=== PATIENT | female | born 1955 | race Caucasian/White ===

== ENCOUNTER 2018-07-24 09:18 | Emergency (ER) | payer MEDICARE, MEDICAID ==
[~2018-07-24] VITALS: Ht 177.8 cm; Wt 92.0 kg
[~2018-07-24 09:18] MED LIST: ALBU8.5H4 IH; CYCL-1 PO; DULO-31 PO; HYDR-2563 PO; HYDR25SU32 RC; HYDR30SU6 RC; LEVO112T25 PO; METH4TAB PO; PRED10TA PO; QUET25TA PO; WEL100T PO; [UNRECOGNIZED DRUG - CODE] PO
[2018-07-24 10:14] LABS: BASOPHILS # (AUTO) 0.1 X10'3 (0-0.2); BASOPHILS % (AUTO) 0.9 % (0-1); EOSINOPHILS # (AUTO) 0.2 X10'3 (0-0.9); EOSINOPHILS % (AUTO) 3.1 % (0-6); HEMATOCRIT 40.5 % (35.0-45.0); HEMOGLOBIN 13.8 g/dl (12.0-16.0); LYMPHOCYTES # (AUTO) 1.5 X10'3 (1.1-4.8); LYMPHOCYTES % (AUTO) 22.5 % (21-51); MEAN CORPUSCULAR HEMOGLOBIN 30.1 PG (27.0-31.0); MEAN CORPUSCULAR VOLUME 88.6 FL (78-98); MONOCYTES # (AUTO) 0.4 X10'3 (0-0.9); MONOCYTES % (AUTO) 6.3 % (2-12); NEUTROPHILS # (AUTO) 4.5 X10'3 (1.8-7.7); NEUTROPHILS % (AUTO) 67.2 % (42-75); PLATELET COUNT 220 X10'3 (140-440); RED BLOOD COUNT 4.58 X10'6 (4.20-5.60); RED CELL DISTRIBUTION WIDTH 13.8 % (11.5-14.5); WHITE BLOOD COUNT 6.8 X10'3 (4.5-11.0)
[2018-07-24 10:23] LABS: PARTIAL THROMBOPLASTIN TIME 29 SECONDS (22-32); PROTHROMBIN TIME 9.9 SECONDS (9.0-12.0)
[2018-07-24 10:27] LABS: ALANINE AMINOTRANSFERASE 16 U/L (12-78); ALBUMIN 3.7 G/DL (3.4-5.0); ALBUMIN/GLOBULIN RATIO 1.2 (1.1-1.5); ALKALINE PHOSPHATASE 72 IU/L (46-116); ANION GAP 8 (8-16); ASPARTATE AMINO TRANSFERASE 14 U/L (10-37); BILIRUBIN,TOTAL 0.4 MG/DL (0.1-1.0); BLOOD UREA NITROGEN 16 MG/DL (7-18); BUN/CREATININE RATIO 19.8 (6.6-38.0); CALCIUM 9.1 MG/DL (8.5-10.1); CHLORIDE 108 MMOL/L (99-107); CREATININE 0.81 MG/DL (0.40-0.90); GLUCOSE 93 MG/DL (70-104); POTASSIUM 4.9 MMOL/L (3.5-5.1); SODIUM 144 MMOL/L (135-145); TOTAL CARBON DIOXIDE 28.5 MMOL/L (24-32); TOTAL PROTEIN 6.9 G/DL (6.4-8.2); eGFR 72 ML/MIN
[2018-07-24] MEDS ORDERED: iohexol 300mg/ml 100ml inj. ONE (10:51)
[2018-07-24 11:18] LABS: CLARITY,URINE CLEAR (Clear); GLUCOSE, URINE NEGATIVE (Neg); KETONES,URINE NEGATIVE (Neg); LEUKOCYTE ESTERASE ,URINE NEGATIVE (Neg); NITRITES, URINE NEGATIVE (Neg); OCCULT BLOOD,URINE SMALL (Neg); PROTEIN,URINE NEGATIVE (Neg); UROBILINOGEN,URINE 0.2 E.U/dL (0.2-1.0)
[2018-07-24 11:20] LABS: COLOR,URINE YELLOW (Yellow); UA COLLECTION TYPE OTHER
[2018-07-24 11:51] LABS: BACTERIA,URINE FEW /HPF (Neg); RBC,URINE 0-2 /HPF (0-2); SQUAMOUS EPITHELIAL CELL,UR FEW /LPF (FEW); WBC,URINE 0-4 /HPF (0-4)
[2018-07-24 13:00] VITALS: BP 129/70
== END 2018-07-24 13:03 | disposition home or self-care (01) ==
LOC: ER 09:19
DX: K92.1 Melena (principal); J45.909 Unspecified asthma, uncomplicated; Z98.890 Other specified postprocedural states; Z88.2 Allergy status to sulfonamides; Z88.1 Allergy status to other antibiotic agents; Z88.5 Allergy status to narcotic agent; Z79.899 Other long term (current) drug therapy
CPT/HCPCS: 36415; 71045; 74177; 80053; 81001; 85025; 85610; 85730; 86885; 86900; 86901; 93005; 99285; J7030; Q9967

== ENCOUNTER 2018-07-27 06:55 | Inpatient (IN) | payer MEDICARE, MEDICAID ==
[~2018-07-27] VITALS: Ht 177.8 cm; Wt 90.9 kg
[2018-07-27] MEDS ORDERED: normal saline 1000ML IV soln IVB ONE ×2 (08:15→08:20)
[2018-07-27] MEDS ORDERED: ondansetron/PF 4mg/2ml inj IV ONE (08:15)
[2018-07-27] MEDS ORDERED: normal saline 1000ml 1,000 ML IV ONE (08:20)
[2018-07-27 08:49] LABS: BASOPHILS % (AUTO) 0.6 % (0-1); EOSINOPHILS # (AUTO) 0.1 X10'3 (0-0.9); HEMATOCRIT 42.5 % (35.0-45.0); HEMOGLOBIN 14.2 g/dl (12.0-16.0); LYMPHOCYTES # (AUTO) 1.4 X10'3 (1.1-4.8); LYMPHOCYTES % (AUTO) 21.1 % (21-51); MEAN CORPUSCULAR HEMOGLOBIN 29.8 PG (27.0-31.0); MEAN CORPUSCULAR HGB CONC 33.3 % (33.0-36.5); MEAN CORPUSCULAR VOLUME 89.4 FL (78-98); MEAN PLATELET VOLUME 9.1 FL (7.4-10.4); MONOCYTES # (AUTO) 0.4 X10'3 (0-0.9); MONOCYTES % (AUTO) 6.3 % (2-12); NEUTROPHILS # (AUTO) 4.5 X10'3 (1.8-7.7); PLATELET COUNT 221 X10'3 (140-440); RED BLOOD COUNT 4.76 X10'6 (4.20-5.60); RED CELL DISTRIBUTION WIDTH 14.2 % (11.5-14.5); WHITE BLOOD COUNT 6.5 X10'3 (4.5-11.0)
[2018-07-27 09:08] LABS: ALANINE AMINOTRANSFERASE 23 U/L (12-78); ALBUMIN 3.7 G/DL (3.4-5.0); ALBUMIN/GLOBULIN RATIO 1.1 (1.1-1.5); ALKALINE PHOSPHATASE 79 IU/L (46-116); ANION GAP 13 (8-16); ASPARTATE AMINO TRANSFERASE 21 U/L (10-37); BILIRUBIN,TOTAL 0.5 MG/DL (0.1-1.0); BLOOD UREA NITROGEN 12 MG/DL (7-18); CALCIUM 8.9 MG/DL (8.5-10.1); CHLORIDE 106 MMOL/L (99-107); CREATININE 0.75 MG/DL (0.40-0.90); GLUCOSE 91 MG/DL (70-104); LIPASE 118 U/L (73-393); POTASSIUM 3.8 MMOL/L (3.5-5.1); SODIUM 145 MMOL/L (135-145); TOTAL CARBON DIOXIDE 25.6 MMOL/L (24-32); eGFR 79 ML/MIN
[2018-07-27] MEDS ORDERED: ondansetron/PF 4mg/2ml inj IV PRN (09:25)
[2018-07-27] MEDS ORDERED: magnesium 1gm/100ml D5W IVPB 100 ML IV PRN (09:25)
[2018-07-27] MEDS ORDERED: potassium Cl 20 mEq SR tablet PO PRN ×2 (09:25)
[2018-07-27] MEDS ORDERED: PEG 3350/Na sulf,bicarb,Cl/KCl oral sol 4 liter bottle PO ONE (09:25)
[2018-07-27] MEDS ORDERED: mag hydrox/Alum hydrox/simeth 30ml oral suspension PO PRN (09:25)
[2018-07-27] MEDS ORDERED: acetaminophen 325mg tablet PO PRN (09:25)
[2018-07-27] MEDS ORDERED: potassium Cl 40MEQ/NS 500ml 500 ML IV PRN ×2 (09:25)
[2018-07-27] MEDS ORDERED: magnesium 4gm in 100ml NS 100 ML IV PRN (09:25)
[2018-07-27] MEDS ORDERED: magnesium Cl slow-release 64mg tablet PO PRN (09:25)
[2018-07-27] MEDS ORDERED: morphine 2 MG/ML inj. syringe IV PRN (09:25)
[2018-07-27] MEDS ORDERED: HYDR-3717 PO (09:42)
[2018-07-27] MEDS ORDERED: TRAZ-218 PO (09:42)
[2018-07-27] MEDS ORDERED: LEVO150T8 PO (09:42)
[2018-07-27] MEDS ORDERED: MONT10TA24 PO (09:42)
[2018-07-27] MEDS ORDERED: ATOR20TA66 PO (09:42)
[2018-07-27] MEDS ORDERED: SERT50TA10 PO (09:42)
[2018-07-27] MEDS ORDERED: CHOL50004 PO (09:42)
[2018-07-27] MEDS ORDERED: DICY20TA17 PO (09:42)
[2018-07-27] MEDS ORDERED: ESTR0.6261 PO (09:42)
[2018-07-27] MEDS: normal saline 1000ml 1,000 ML IV SCH ×2 (10:15→19:37)
[2018-07-27] MEDS: HYDROcodone/acetaminophen 5mg/325mg tablet PO PRN ×3 (11:08→22:46)
[2018-07-27 11:33] VITALS: BP 126/64
[2018-07-27 18:00] VITALS: BP 105/51
[2018-07-27] MEDS: docusate sod 100mg capsule PO SCH (19:36)
[2018-07-27] MEDS ORDERED: temazepam 15mg capsule PO PRN (21:00)
[2018-07-27 22:00] VITALS: BP_SYST 116; BP_SYST 117; BP_SYST 119; BP_SYST 124; BP_DIAS 55; BP_DIAS 56; BP_DIAS 73; BP_DIAS 77
[2018-07-27] MEDS ORDERED: metoclopramide 5 mg/ml inj IV ONE (22:30)
[2018-07-28] VITALS (9 sets, daily range): BP systolic 102–141; BP diastolic 50–73
[2018-07-28] MEDS: normal saline 1000ml 1,000 ML IV SCH (05:03)
[2018-07-28] MEDS: pantoprazole 40 MG vial IV SCH (07:38)
[2018-07-28] MEDS: docusate sod 100mg capsule PO SCH ×2 (07:39→20:00)
[2018-07-28] MEDS: K and/or MAG REPLACEMENT MC SCH (08:00)
[2018-07-28 08:09] LABS: BASOPHILS % (AUTO) 0.7 % (0-1); EOSINOPHILS # (AUTO) 0.1 X10'3 (0-0.9); HEMATOCRIT 37.8 % (35.0-45.0); HEMOGLOBIN 12.9 g/dl (12.0-16.0); LYMPHOCYTES # (AUTO) 1.4 X10'3 (1.1-4.8); LYMPHOCYTES % (AUTO) 24.9 % (21-51); MEAN CORPUSCULAR HEMOGLOBIN 30.2 PG (27.0-31.0); MEAN CORPUSCULAR VOLUME 88.8 FL (78-98); MEAN PLATELET VOLUME 8.7 FL (7.4-10.4); MONOCYTES # (AUTO) 0.3 X10'3 (0-0.9); NEUTROPHILS # (AUTO) 3.7 X10'3 (1.8-7.7); NEUTROPHILS % (AUTO) 66.4 % (42-75); PLATELET COUNT 209 X10'3 (140-440); RED BLOOD COUNT 4.26 X10'6 (4.20-5.60); RED CELL DISTRIBUTION WIDTH 14.1 % (11.5-14.5); WHITE BLOOD COUNT 5.6 X10'3 (4.5-11.0)
[2018-07-28 08:28] LABS: ALBUMIN 3.4 G/DL (3.4-5.0); ANION GAP 11 (8-16); BLOOD UREA NITROGEN 7 MG/DL (7-18); BUN/CREATININE RATIO 8.9 (6.6-38.0); CALCIUM 8.2 MG/DL (8.5-10.1); CHLORIDE 106 MMOL/L (99-107); CREATININE 0.79 MG/DL (0.40-0.90); GLUCOSE 87 MG/DL (70-104); POTASSIUM 3.5 MMOL/L (3.5-5.1); SODIUM 143 MMOL/L (135-145); TOTAL CARBON DIOXIDE 26.1 MMOL/L (24-32); eGFR 74 ML/MIN
[2018-07-28] MEDS ORDERED: MIDAZolam 5mg/5ml vial ONE (13:22)
[2018-07-28] MEDS ORDERED: fentaNYL/PF 50MCG/1 ML 2ML syringe ONE (13:22)
[2018-07-28] MEDS ORDERED: ondansetron/PF 4mg/2ml inj ONE (14:20)
[2018-07-28 15:45] LABS: BASOPHILS # (AUTO) 0.1 X10'3 (0-0.2); BASOPHILS % (AUTO) 0.8 % (0-1); EOSINOPHILS # (AUTO) 0.2 X10'3 (0-0.9); HEMOGLOBIN 13.6 g/dl (12.0-16.0); LYMPHOCYTES # (AUTO) 1.8 X10'3 (1.1-4.8); LYMPHOCYTES % (AUTO) 23.7 % (21-51); MEAN CORPUSCULAR HEMOGLOBIN 29.7 PG (27.0-31.0); MEAN CORPUSCULAR HGB CONC 33.2 % (33.0-36.5); MEAN CORPUSCULAR VOLUME 89.4 FL (78-98); MEAN PLATELET VOLUME 9.3 FL (7.4-10.4); MONOCYTES # (AUTO) 0.4 X10'3 (0-0.9); MONOCYTES % (AUTO) 5.6 % (2-12); NEUTROPHILS # (AUTO) 5.2 X10'3 (1.8-7.7); NEUTROPHILS % (AUTO) 67.9 % (42-75); PLATELET COUNT 227 X10'3 (140-440); RED BLOOD COUNT 4.58 X10'6 (4.20-5.60); RED CELL DISTRIBUTION WIDTH 14.1 % (11.5-14.5); WHITE BLOOD COUNT 7.7 X10'3 (4.5-11.0)
[2018-07-29 06:00] VITALS: BP 137/58
[2018-07-29 08:00] VITALS: BP_SYST 124; BP_SYST 133; BP_SYST 137; BP_DIAS 72; BP_DIAS 78; BP_DIAS 81
[2018-07-29] MEDS: docusate sod 100mg capsule PO SCH (08:00)
[2018-07-29] MEDS: pantoprazole 40 MG vial IV SCH (08:00)
[2018-07-29] MEDS: K and/or MAG REPLACEMENT MC SCH (08:00)
[2018-07-29 08:03] LABS: ALBUMIN 3.9 G/DL (3.4-5.0); ANION GAP 13 (8-16); BLOOD UREA NITROGEN 8 MG/DL (7-18); CALCIUM 9.2 MG/DL (8.5-10.1); CHLORIDE 105 MMOL/L (99-107); GLUCOSE 84 MG/DL (70-104); MAGNESIUM 2.1 MG/DL (1.5-2.4); POTASSIUM 3.6 MMOL/L (3.5-5.1); SODIUM 145 MMOL/L (135-145); eGFR 73 ML/MIN
[2018-07-29 08:14] LABS: BASOPHILS % (AUTO) 0.4 % (0-1); EOSINOPHILS # (AUTO) 0.1 X10'3 (0-0.9); HEMATOCRIT 43.7 % (35.0-45.0); HEMOGLOBIN 14.6 g/dl (12.0-16.0); LYMPHOCYTES # (AUTO) 1.3 X10'3 (1.1-4.8); LYMPHOCYTES % (AUTO) 20.6 % (21-51); MEAN CORPUSCULAR HEMOGLOBIN 29.8 PG (27.0-31.0); MEAN CORPUSCULAR HGB CONC 33.3 % (33.0-36.5); MEAN CORPUSCULAR VOLUME 89.3 FL (78-98); MEAN PLATELET VOLUME 9.3 FL (7.4-10.4); MONOCYTES # (AUTO) 0.4 X10'3 (0-0.9); MONOCYTES % (AUTO) 5.6 % (2-12); NEUTROPHILS # (AUTO) 4.7 X10'3 (1.8-7.7); NEUTROPHILS % (AUTO) 71.4 % (42-75); PLATELET COUNT 235 X10'3 (140-440); RED BLOOD COUNT 4.89 X10'6 (4.20-5.60); WHITE BLOOD COUNT 6.5 X10'3 (4.5-11.0)
[2018-07-29] MEDS ORDERED: LORazepam 0.5 MG tablet PO ONE (09:35)
[2018-07-29 10:00] VITALS: BP 124/72
[2018-07-29] MEDS ORDERED: CLON-528 PO (11:23)
[2018-07-29] MEDS ORDERED: BUDE10.22 INH (13:52)
[2018-08-01 09:37] LABS: OCCULT BLOOD STOOL POSITIVE (Neg)
== END 2018-07-29 12:33 | disposition home or self-care (01) | DRG 395 ==
LOC: ER 06:55 → ED HOLD 09:23 → ORTHO 4S 10:45
PROVIDERS: ADMIT Internal Medicine; ATTEND Internal Medicine
PROC: 0DJD8ZZ Inspection of Lower Intestinal Tract, Via Natural or Artificial Opening Endoscopic (ICD-10-PCS; principal; 2018-07-28)
DX: K64.8 Other hemorrhoids (principal); E03.9 Hypothyroidism, unspecified; E78.00 Pure hypercholesterolemia, unspecified; F12.90 Cannabis use, unspecified, uncomplicated; F31.9 Bipolar disorder, unspecified; G47.00 Insomnia, unspecified; G89.4 Chronic pain syndrome; K57.30 Diverticulosis of large intestine without perforation or abscess without bleeding; J45.909 Unspecified asthma, uncomplicated; M54.5 Low back pain; Z60.2 Problems related to living alone; Z72.89 Other problems related to lifestyle; Z79.899 Other long term (current) drug therapy; Z88.2 Allergy status to sulfonamides; Z88.5 Allergy status to narcotic agent; Z88.1 Allergy status to other antibiotic agents
CPT/HCPCS: 36415; 45378; 80048; 80053; 82272; 83690; 83735; 85025; 86885; 86900; 86901; 87070; 96361; 96374; 97116; 97161; 97530; 99153; 99285; A4620; C9113; J2250; J2405; J2765; J3010; J7030; Q2037

== ENCOUNTER 2018-07-29 12:43 | Inpatient (IN) | payer MEDICARE, MEDICAID ==
[~2018-07-29] VITALS: Ht 177.8 cm; Wt 90.0 kg
[~2018-07-29 12:43] MED LIST changes: +ATOR20TA66 PO; +CHOL50004 PO; +CLON-528 PO; -CYCL-1 PO; +DICY20TA17 PO; -DULO-31 PO; +ESTR0.6261 PO; -HYDR-2563 PO; +HYDR-3717 PO; -HYDR25SU32 RC; -HYDR30SU6 RC; -LEVO112T25 PO; +LEVO150T8 PO; -METH4TAB PO; +MONT10TA24 PO; -PRED10TA PO; -QUET25TA PO; +SERT50TA10 PO; +TRAZ-218 PO; -WEL100T PO; -[UNRECOGNIZED DRUG - CODE] PO
[2018-07-29] MEDS ORDERED: mag hydrox/Alum hydrox/simeth 30ml oral suspension PO PRN (13:35)
[2018-07-29] MEDS ORDERED: acetaminophen 325mg tablet PO PRN (13:35)
[2018-07-29] MEDS ORDERED: BUDE10.22 INH (13:52)
[2018-07-29] MEDS ORDERED: DICYCLOMINE HCL PO PRN (14:05)
[2018-07-29] MEDS ORDERED: hydrOXYzine 10 MG tablet PO PRN (14:05)
[2018-07-29] MEDS: hydrOXYzine 10 MG tablet PO PRN (14:16)
[2018-07-29 14:17] LABS: CHOL/HDL RATIO 3.6 (0.00-4.99); CHOLESTEROL 226 MG/DL (0-200); HDL CHOLESTEROL 62 MG/DL (35-60); LDL CHOLESTEROL 150 MG/DL (50-100); TRIGLYCERIDES 70 MG/DL (20-135)
[2018-07-29] MEDS ORDERED: dicyclomine 10 MG capsule PO PRN (14:20)
[2018-07-29 14:58] VITALS: BP 121/72
[2018-07-29 16:03] LABS: BASOPHILS # (AUTO) 0.1 X10'3 (0-0.2); BASOPHILS % (AUTO) 0.8 % (0-1); EOSINOPHILS # (AUTO) 0.1 X10'3 (0-0.9); EOSINOPHILS % (AUTO) 1.5 % (0-6); HEMATOCRIT 42.6 % (35.0-45.0); HEMOGLOBIN 14.2 g/dl (12.0-16.0); LYMPHOCYTES # (AUTO) 1.4 X10'3 (1.1-4.8); LYMPHOCYTES % (AUTO) 19.3 % (21-51); MEAN CORPUSCULAR HEMOGLOBIN 29.8 PG (27.0-31.0); MEAN CORPUSCULAR HGB CONC 33.4 % (33.0-36.5); MEAN CORPUSCULAR VOLUME 89.2 FL (78-98); MEAN PLATELET VOLUME 9.3 FL (7.4-10.4); MONOCYTES # (AUTO) 0.5 X10'3 (0-0.9); MONOCYTES % (AUTO) 6.3 % (2-12); NEUTROPHILS # (AUTO) 5.3 X10'3 (1.8-7.7); NEUTROPHILS % (AUTO) 72.1 % (42-75); PLATELET COUNT 237 X10'3 (140-440); RED BLOOD COUNT 4.77 X10'6 (4.20-5.60); RED CELL DISTRIBUTION WIDTH 13.9 % (11.5-14.5); WHITE BLOOD COUNT 7.4 X10'3 (4.5-11.0)
[2018-07-29] MEDS: acetaminophen 325mg tablet PO PRN (16:14)
[2018-07-29 19:52] VITALS: BP 125/76
[2018-07-29] MEDS: clonazePAM 0.5mg tablet PO SCH (21:29)
[2018-07-29] MEDS: traZODone 50mg tablet PO SCH (21:29)
[2018-07-29] MEDS: montelukast 10mg tablet PO SCH (21:30)
[2018-07-29] MEDS: BUDESONIDE 0.25 MG/2 ML AMPUL.NEB IH SCH (21:51)
[2018-07-29] MEDS: albuterol 2.5 MG/3 ML nebule NEB SCH (21:51)
[2018-07-30] MEDS: albuterol 2.5 MG/3 ML nebule NEB SCH ×4 (02:00→21:18)
[2018-07-30] MEDS: vitamin D (cholecalciferol) 1,000 unit tablet PO SCH (07:11)
[2018-07-30] MEDS: clonazePAM 0.5mg tablet PO SCH ×2 (07:11→20:37)
[2018-07-30] MEDS: estrogen, conjugated 0.625mg tablet PO SCH (07:14)
[2018-07-30] MEDS: levoTHYROXINE 75mcg tablet PO SCH (07:15)
[2018-07-30] MEDS: atorvastatin 20mg tablet PO SCH (07:15)
[2018-07-30] MEDS: BUDESONIDE 0.25 MG/2 ML AMPUL.NEB IH SCH ×2 (07:44→21:18)
[2018-07-30] MEDS ORDERED: traZODone 50mg tablet PO SCH (08:00)
[2018-07-30 08:09] VITALS: BP 113/69
[2018-07-30 19:46] VITALS: BP 103/64
[2018-07-30] MEDS ORDERED: calcium polycarbophil 625mg tablet PO SCH (20:00)
[2018-07-30] MEDS: traZODone 50mg tablet PO SCH (20:37)
[2018-07-30] MEDS: montelukast 10mg tablet PO SCH (20:37)
[2018-07-30] MEDS: busPIRone 5mg tablet PO SCH (21:00)
[2018-07-31] MEDS: albuterol 2.5 MG/3 ML nebule NEB SCH ×4 (02:00→20:02)
[2018-07-31] MEDS: atorvastatin 20mg tablet PO SCH (07:31)
[2018-07-31] MEDS: levoTHYROXINE 75mcg tablet PO SCH (07:31)
[2018-07-31] MEDS: clonazePAM 0.5mg tablet PO SCH ×2 (07:31→20:55)
[2018-07-31] MEDS: estrogen, conjugated 0.625mg tablet PO SCH (07:32)
[2018-07-31] MEDS: vitamin D (cholecalciferol) 1,000 unit tablet PO SCH (07:32)
[2018-07-31] MEDS: busPIRone 5mg tablet PO SCH ×3 (07:32→20:55)
[2018-07-31 08:00] VITALS: BP 118/66
[2018-07-31] MEDS: BUDESONIDE 0.25 MG/2 ML AMPUL.NEB IH SCH ×2 (08:06→20:02)
[2018-07-31] MEDS: docusate sod 100mg capsule PO SCH ×2 (08:30→20:55)
[2018-07-31 19:56] VITALS: BP 114/67
[2018-07-31] MEDS: traZODone 50mg tablet PO SCH (20:55)
[2018-07-31] MEDS: montelukast 10mg tablet PO SCH (20:55)
[2018-08-01] MEDS: albuterol 2.5 MG/3 ML nebule NEB SCH ×3 (03:14→20:45)
[2018-08-01] MEDS: busPIRone 5mg tablet PO SCH ×3 (07:29→21:14)
[2018-08-01] MEDS: levoTHYROXINE 75mcg tablet PO SCH (07:29)
[2018-08-01] MEDS: estrogen, conjugated 0.625mg tablet PO SCH (07:29)
[2018-08-01] MEDS: clonazePAM 0.5mg tablet PO SCH ×2 (07:29→21:13)
[2018-08-01] MEDS: docusate sod 100mg capsule PO SCH ×2 (07:29→21:13)
[2018-08-01] MEDS: vitamin D (cholecalciferol) 1,000 unit tablet PO SCH (07:29)
[2018-08-01] MEDS: atorvastatin 20mg tablet PO SCH (07:30)
[2018-08-01] MEDS: BUDESONIDE 0.25 MG/2 ML AMPUL.NEB IH SCH ×2 (07:43→20:45)
[2018-08-01 08:19] VITALS: BP 112/68
[2018-08-01 19:00] VITALS: BP 106/64
[2018-08-01] MEDS: montelukast 10mg tablet PO SCH (21:14)
[2018-08-01] MEDS: traZODone 50mg tablet PO SCH (21:14)
[2018-08-01] MEDS: magnesium hydroxide 30ml (MOM) UD suspension PO PRN (21:16)
[2018-08-02] MEDS: albuterol 2.5 MG/3 ML nebule NEB SCH ×2 (01:09→07:55)
[2018-08-02] MEDS: levoTHYROXINE 75mcg tablet PO SCH (07:23)
[2018-08-02] MEDS: BUDESONIDE 0.25 MG/2 ML AMPUL.NEB IH SCH ×2 (07:56→20:00)
[2018-08-02 08:00] VITALS: BP 105/66
[2018-08-02] MEDS: docusate sod 100mg capsule PO SCH ×2 (08:35→21:05)
[2018-08-02] MEDS: atorvastatin 20mg tablet PO SCH (08:35)
[2018-08-02] MEDS: busPIRone 5mg tablet PO SCH ×3 (08:36→21:06)
[2018-08-02] MEDS: clonazePAM 0.5mg tablet PO SCH ×2 (08:36→21:05)
[2018-08-02] MEDS: estrogen, conjugated 0.625mg tablet PO SCH (08:36)
[2018-08-02] MEDS: vitamin D (cholecalciferol) 1,000 unit tablet PO SCH (08:36)
[2018-08-02] MEDS: albuterol 2.5 MG/3 ML nebule NEB PRN (14:40)
[2018-08-02 19:00] VITALS: BP 130/72
[2018-08-02] MEDS: acetaminophen 325mg tablet PO PRN (19:18)
[2018-08-02] MEDS: traZODone 50mg tablet PO SCH (21:06)
[2018-08-02] MEDS: montelukast 10mg tablet PO SCH (21:06)
[2018-08-02] MEDS: polyethylene glycol 3350 17gm powd pack PO SCH (21:06)
[2018-08-02] MEDS: magnesium hydroxide 30ml (MOM) UD suspension PO PRN (21:07)
[2018-08-03] MEDS: levoTHYROXINE 75mcg tablet PO SCH (07:30)
[2018-08-03 07:48] VITALS: BP 107/68
[2018-08-03] MEDS: estrogen, conjugated 0.625mg tablet PO SCH (07:57)
[2018-08-03] MEDS: clonazePAM 0.5mg tablet PO SCH ×2 (07:57→21:05)
[2018-08-03] MEDS: vitamin D (cholecalciferol) 1,000 unit tablet PO SCH (07:57)
[2018-08-03] MEDS: busPIRone 5mg tablet PO SCH ×3 (07:58→21:05)
[2018-08-03] MEDS: atorvastatin 20mg tablet PO SCH (07:58)
[2018-08-03] MEDS: docusate sod 100mg capsule PO SCH ×2 (07:58→21:05)
[2018-08-03] MEDS: sertraline 25mg tablet PO SCH (08:29)
[2018-08-03] MEDS: hydrOXYzine 10 MG tablet PO PRN (08:34)
[2018-08-03] MEDS: BUDESONIDE 0.25 MG/2 ML AMPUL.NEB IH SCH ×2 (10:04→19:33)
[2018-08-03 19:00] VITALS: BP 126/67
[2018-08-03] MEDS: polyethylene glycol 3350 17gm powd pack PO SCH (21:05)
[2018-08-03] MEDS: traZODone 50mg tablet PO SCH (21:05)
[2018-08-03] MEDS: montelukast 10mg tablet PO SCH (21:06)
[2018-08-04] MEDS: hydrOXYzine 10 MG tablet PO PRN (05:56)
[2018-08-04] MEDS: levoTHYROXINE 75mcg tablet PO SCH (07:23)
[2018-08-04 08:00] VITALS: BP 116/68
[2018-08-04] MEDS: sertraline 25mg tablet PO SCH (08:13)
[2018-08-04] MEDS: atorvastatin 20mg tablet PO SCH (08:13)
[2018-08-04] MEDS: estrogen, conjugated 0.625mg tablet PO SCH (08:13)
[2018-08-04] MEDS: docusate sod 100mg capsule PO SCH ×2 (08:13→20:34)
[2018-08-04] MEDS: clonazePAM 0.5mg tablet PO SCH ×2 (08:13→20:34)
[2018-08-04] MEDS: busPIRone 5mg tablet PO SCH ×3 (08:13→20:34)
[2018-08-04] MEDS: vitamin D (cholecalciferol) 1,000 unit tablet PO SCH (08:13)
[2018-08-04] MEDS: albuterol 2.5 MG/3 ML nebule NEB PRN (09:56)
[2018-08-04] MEDS: BUDESONIDE 0.25 MG/2 ML AMPUL.NEB IH SCH ×3 (09:56→21:12)
[2018-08-04 19:00] VITALS: BP 112/60
[2018-08-04] MEDS: polyethylene glycol 3350 17gm powd pack PO SCH (20:33)
[2018-08-04] MEDS: montelukast 10mg tablet PO SCH (20:34)
[2018-08-04] MEDS: prazosin 1mg capsule PO SCH (20:34)
[2018-08-04] MEDS: traZODone 50mg tablet PO SCH (20:34)
[2018-08-05] MEDS: levoTHYROXINE 75mcg tablet PO SCH (06:34)
[2018-08-05 08:00] VITALS: BP 111/71
[2018-08-05] MEDS: busPIRone 5mg tablet PO SCH ×3 (08:19→21:08)
[2018-08-05] MEDS: atorvastatin 20mg tablet PO SCH (08:19)
[2018-08-05] MEDS: docusate sod 100mg capsule PO SCH ×2 (08:19→20:08)
[2018-08-05] MEDS: clonazePAM 0.5mg tablet PO SCH ×2 (08:19→20:08)
[2018-08-05] MEDS: estrogen, conjugated 0.625mg tablet PO SCH (08:20)
[2018-08-05] MEDS: sertraline 25mg tablet PO SCH (08:20)
[2018-08-05] MEDS: vitamin D (cholecalciferol) 1,000 unit tablet PO SCH (08:20)
[2018-08-05] MEDS ORDERED: SERT25TA5 PO (08:59)
[2018-08-05] MEDS ORDERED: BUSP10TA3 PO (08:59)
[2018-08-05] MEDS ORDERED: CLON0.5T12 PO (08:59)
[2018-08-05] MEDS ORDERED: TRAZ-218 PO (08:59)
[2018-08-05] MEDS ORDERED: PRAZ1CAP5 PO (08:59)
[2018-08-05] MEDS ORDERED: HYDR-3717 PO (08:59)
[2018-08-05] MEDS: BUDESONIDE 0.25 MG/2 ML AMPUL.NEB IH SCH ×2 (10:39→19:41)
[2018-08-05] MEDS: acetaminophen 325mg tablet PO PRN (19:10)
[2018-08-05] MEDS: albuterol 2.5 MG/3 ML nebule NEB PRN (19:41)
[2018-08-05 20:08] VITALS: BP 114/60
[2018-08-05] MEDS: polyethylene glycol 3350 17gm powd pack PO SCH (21:00)
[2018-08-05] MEDS: traZODone 50mg tablet PO SCH (21:08)
[2018-08-05] MEDS: montelukast 10mg tablet PO SCH (21:08)
[2018-08-05] MEDS: prazosin 1mg capsule PO SCH (21:08)
[2018-08-06] MEDS: BUDESONIDE 0.25 MG/2 ML AMPUL.NEB IH SCH (07:29)
[2018-08-06] MEDS: sertraline 25mg tablet PO SCH (07:48)
[2018-08-06] MEDS: atorvastatin 20mg tablet PO SCH (07:49)
[2018-08-06] MEDS: levoTHYROXINE 75mcg tablet PO SCH (07:49)
[2018-08-06] MEDS: vitamin D (cholecalciferol) 1,000 unit tablet PO SCH (07:49)
[2018-08-06] MEDS: docusate sod 100mg capsule PO SCH (07:49)
[2018-08-06] MEDS: busPIRone 5mg tablet PO SCH ×2 (07:49→12:48)
[2018-08-06] MEDS: clonazePAM 0.5mg tablet PO SCH (07:49)
[2018-08-06 08:00] VITALS: BP 107/63
[2018-08-06] MEDS: estrogen, conjugated 0.625mg tablet PO SCH (08:08)
== END 2018-08-06 16:17 | disposition home or self-care (01) | DRG 885 ==
LOC: ADULT MH 12:43
PROVIDERS: ADMIT Psychiatry & Neurology Psychiatry; ATTEND Internal Medicine
DX: F33.2 Major depressive disorder, recurrent severe without psychotic features (principal); R45.851 Suicidal ideations; F43.10 Post-traumatic stress disorder, unspecified; J45.909 Unspecified asthma, uncomplicated; F41.9 Anxiety disorder, unspecified; K59.00 Constipation, unspecified; Z98.891 History of uterine scar from previous surgery; Z88.1 Allergy status to other antibiotic agents; Z88.5 Allergy status to narcotic agent; Z23 Encounter for immunization
CPT/HCPCS: 36415; 80061; 83036; 85025; 87070; 94640; 94760; Q2037

== ENCOUNTER 2018-09-11 07:15 | Day surgery (SDC) | payer MEDICARE, MEDICAID ==
[2018-09-06 15:32] LABS: CLARITY,URINE CLEAR (Clear); COLOR,URINE YELLOW (Yellow); GLUCOSE, URINE NEGATIVE (Neg); KETONES,URINE NEGATIVE (Neg); LEUKOCYTE ESTERASE ,URINE TRACE (Neg); NITRITES, URINE NEGATIVE (Neg); OCCULT BLOOD,URINE TRACE-INTACT (Neg); PH,URINE 6.5 (4.8-8.0); PROTEIN,URINE NEGATIVE (Neg); UROBILINOGEN,URINE 0.2 E.U/dL (0.2-1.0)
[2018-09-06 15:35] LABS: UA COLLECTION TYPE CLN CATCH MIDSTREAM
[2018-09-06 15:37] LABS: BASOPHILS % (AUTO) 0.6 % (0-1); EOSINOPHILS # (AUTO) 0.2 X10'3 (0-0.9); EOSINOPHILS % (AUTO) 2.6 % (0-6); LYMPHOCYTES # (AUTO) 1.8 X10'3 (1.1-4.8); LYMPHOCYTES % (AUTO) 23.6 % (21-51); MEAN CORPUSCULAR HEMOGLOBIN 29.7 PG (27.0-31.0); MEAN CORPUSCULAR HGB CONC 32.7 % (33.0-36.5); MEAN PLATELET VOLUME 9.1 FL (7.4-10.4); MONOCYTES # (AUTO) 0.5 X10'3 (0-0.9); MONOCYTES % (AUTO) 6.3 % (2-12); NEUTROPHILS % (AUTO) 66.9 % (42-75); PRE OP HEMATOCRIT 41.3 % (35.0-45.0); PRE OP HEMOGLOBIN 13.5 g/dL (12.0-16.0); PRE OP PLATELET COUNT 225 X10'3 (140-440); RED BLOOD COUNT 4.54 X10'6 (4.20-5.60); RED CELL DISTRIBUTION WIDTH 14.1 % (11.5-14.5)
[2018-09-06 15:46] LABS: ALBUMIN 3.7 G/DL (3.4-5.0); ALBUMIN/GLOBULIN RATIO 1.1 (1.1-1.5); ALKALINE PHOSPHATASE 66 IU/L (46-116); BLOOD UREA NITROGEN 14 MG/DL (7-18); BUN/CREATININE RATIO 14.4 (6.6-38.0); CALCIUM 9.1 MG/DL (8.5-10.1); CHLORIDE 106 MMOL/L (99-107); CREATININE 0.97 MG/DL (0.40-0.90); PRE OP ALT 20 U/L (30-65); PRE OP ANION GAP 7 (8-16); PRE OP AST 14 U/L (10-37); PRE OP BILIRUB, TOTAL 0.4 MG/DL (0.0-1.0); PRE OP GLUCOSE 83 MG/DL (70-104); PRE OP POTASSIUM 3.8 MMOL/L (3.4-5.1); PRE OP SODIUM 144 MMOL/L (135-145); TOTAL CARBON DIOXIDE 31.1 MMOL/L (24-32); eGFR 58 ML/MIN
[2018-09-06 15:47] LABS: SQUAMOUS EPITHELIAL CELL,UR MODERATE /LPF (FEW)
[2018-09-06 15:48] LABS: BACTERIA,URINE 1+ /HPF (Neg); WBC,URINE 0-4 /HPF (0-4)
[~2018-09-11] VITALS: Ht 177.8 cm; Wt 91.5 kg
[2018-09-11] VITALS (11 sets, daily range): BP systolic 107–163; BP diastolic 64–108
[~2018-09-11 07:15] MED LIST changes: -ALBU8.5H4 IH; +BUSP10TA3 PO; -CLON-528 PO; -ESTR0.6261 PO; -HYDR-3717 PO; -MONT10TA24 PO; +SERT25TA5 PO; -SERT50TA10 PO; +cefazolin/dext.iso 2gm/100 ML IV ONE; +famotidine 20mg tablet PO ONE; +ringers solution, lacted 1,000 ML IV SCH
[2018-09-11] MEDS ORDERED: LIDOcaine 1% (10mg/ml) 2ml vial ONE (07:43)
[2018-09-11] MEDS ORDERED: TRAZ-218 PO (08:26)
[2018-09-11] MEDS ORDERED: SERT25TA PO (08:26)
[2018-09-11] MEDS ORDERED: BUSP10TA11 PO (08:26)
[2018-09-11] MEDS ORDERED: albuterol 2.5 MG/3 ML nebule NEB ONE (08:30)
[2018-09-11] MEDS ORDERED: ketorolac trometh. 30mg/ml inj. IV ONE (09:05)
[2018-09-11] MEDS ORDERED: ringers solution, lacted 1,000 ML IV SCH (09:05)
[2018-09-11] MEDS ORDERED: ondansetron/PF 4mg/2ml inj IV PRN (09:05)
[2018-09-11] MEDS ORDERED: acetaminophen 1,000mg/100ml IV 100 ML IV PRN (09:05)
[2018-09-11] MEDS ORDERED: fentaNYL/PF 50MCG/1 ML 2ML syringe IV PRN (09:05)
[2018-09-11] MEDS ORDERED: hydrALAZINE 20mg/ml inj. IV PRN (09:05)
[2018-09-11] MEDS ORDERED: enalaprilat dihydrate 2.5mg/2ml vial IV PRN (09:05)
[2018-09-11] MEDS ORDERED: ROPIVAcaine 0.5% (5mg/ml) 30ml vial ONE (09:43)
[2018-09-11] MEDS ORDERED: propofol inj 20 ML IV ONE (10:00)
[2018-09-11] MEDS ORDERED: midazolam 2 mg/2 ml injection ONE (10:00)
[2018-09-11] MEDS ORDERED: fentaNYL/PF 50MCG/1 ML 2ML syringe ONE (10:00)
[2018-09-11] MEDS ORDERED: LIDOcaine 2% (20mg/ml) 5ml vial ONE (10:01)
[2018-09-11] MEDS ORDERED: ondansetron/PF 4mg/2ml inj ONE (10:01)
[2018-09-11] MEDS ORDERED: rocuronium 10mg/ml inj IV ONE (10:05)
[2018-09-11] MEDS ORDERED: sevoflurane 250ml liquid IH ONE (10:05)
[2018-09-11] MEDS ORDERED: dexamethasone sod phosphate 10mg/ml inj ONE (10:05)
[2018-09-11] MEDS: fentaNYL/PF 50MCG/1 ML 2ML syringe IV PRN ×2 (11:19→11:37)
== END 2018-09-11 13:13 | disposition home or self-care (01) ==
LOC: PAS 07:15
PROVIDERS: ATTEND Surgery
DX: K64.2 Third degree hemorrhoids (principal); K64.3 Fourth degree hemorrhoids; K64.4 Residual hemorrhoidal skin tags; J45.998 Other asthma; E78.00 Pure hypercholesterolemia, unspecified; E66.9 Obesity, unspecified; E03.9 Hypothyroidism, unspecified; F32.89 Other specified depressive episodes; F43.10 Post-traumatic stress disorder, unspecified; F41.8 Other specified anxiety disorders; F12.90 Cannabis use, unspecified, uncomplicated; Z68.28 Body mass index [BMI] 28.0-28.9, adult; Z87.19 Personal history of other diseases of the digestive system; Z87.440 Personal history of urinary (tract) infections; Z90.711 Acquired absence of uterus with remaining cervical stump; Z87.891 Personal history of nicotine dependence; Z88.2 Allergy status to sulfonamides; Z88.1 Allergy status to other antibiotic agents; Z88.5 Allergy status to narcotic agent; Z79.891 Long term (current) use of opiate analgesic; Z79.2 Long term (current) use of antibiotics; Z72.89 Other problems related to lifestyle; Z98.890 Other specified postprocedural states; Z79.899 Other long term (current) drug therapy; Z82.0 Family history of epilepsy and other diseases of the nervous system; Z82.49 Family history of ischemic heart disease and other diseases of the circulatory system
CPT/HCPCS: 36415; 46250; 46947; 80053; 81001; 85025; 87088; 93005; 94640; A6224; A6449; J0131; J0690; J1100; J1885; J2001; J2250; J2405; J2704; J3010; J3490; A7000; J2795; J7120

== ENCOUNTER 2019-10-13 12:32 | Inpatient (IN) | payer MEDICARE, MEDICAID ==
[~2019-10-13] VITALS: Ht 177.8 cm; Wt 113.6 kg
[~2019-10-13 12:32] MED LIST changes: +BUSP10TA11 PO; -BUSP10TA3 PO; +SERT25TA PO; -SERT25TA5 PO; -TRAZ-218 PO; +TRAZ-251 PO; -cefazolin/dext.iso 2gm/100 ML IV ONE; -famotidine 20mg tablet PO ONE; -ringers solution, lacted 1,000 ML IV SCH
[2019-10-13 15:31] LABS: BASOPHILS # (AUTO) 0.1 X10'3 (0-0.2); BASOPHILS % (AUTO) 0.7 % (0-1); EOSINOPHILS # (AUTO) 0.2 X10'3 (0-0.9); EOSINOPHILS % (AUTO) 2.3 % (0-6); HEMATOCRIT 41.1 % (35.0-45.0); LYMPHOCYTES # (AUTO) 1.9 X10'3 (1.1-4.8); LYMPHOCYTES % (AUTO) 26.1 % (21-51); MEAN CORPUSCULAR VOLUME 88.5 FL (78-98); MEAN PLATELET VOLUME 8.4 FL (7.4-10.4); MONOCYTES # (AUTO) 0.5 X10'3 (0-0.9); NEUTROPHILS # (AUTO) 4.7 X10'3 (1.8-7.7); NEUTROPHILS % (AUTO) 63.9 % (42-75); PLATELET COUNT 241 X10'3 (140-440); RED BLOOD COUNT 4.65 X10'6 (4.20-5.60); RED CELL DISTRIBUTION WIDTH 13.1 % (11.5-14.5); WHITE BLOOD COUNT 7.3 X10'3 (4.5-11.0)
[2019-10-13 15:40] LABS: PARTIAL THROMBOPLASTIN TIME 30 SECONDS (22-32)
[2019-10-13 15:42] LABS: ALANINE AMINOTRANSFERASE 28 U/L (12-78); ALBUMIN 4.5 G/DL (3.4-5.0); ALBUMIN/GLOBULIN RATIO 1.4 (1.1-1.5); ALKALINE PHOSPHATASE 88 IU/L (46-116); ANION GAP 7 (8-16); ASPARTATE AMINO TRANSFERASE 24 U/L (10-37); BILIRUBIN,TOTAL 0.7 MG/DL (0.1-1.0); BLOOD UREA NITROGEN 13 MG/DL (7-18); BUN/CREATININE RATIO 14.3 (6.6-38.0); CALCIUM 9.3 MG/DL (8.5-10.1); CHLORIDE 104 MMOL/L (99-107); CREATININE 0.91 MG/DL (0.40-0.90); GLUCOSE 96 MG/DL (70-104); POTASSIUM 3.9 MMOL/L (3.5-5.1); SODIUM 140 MMOL/L (135-145); TOTAL CARBON DIOXIDE 28.9 MMOL/L (24-32); TOTAL PROTEIN 7.8 G/DL (6.4-8.2); eGFR 63 ML/MIN
[2019-10-13] MEDS ORDERED: proparacaine 0.5% ophthalmic drops 15ml EACHEYE ONE (15:45)
[2019-10-13] MEDS: normal saline 1000ml 1,000 ML IV SCH ×2 (16:28→20:24)
[2019-10-13] MEDS ORDERED: potassium Cl 20 mEq SR tablet PO PRN ×2 (16:30)
[2019-10-13] MEDS ORDERED: acetaminophen 325mg tablet PO PRN (16:30)
[2019-10-13] MEDS ORDERED: diphenhydrAMINE 25mg capsule PO PRN (16:30)
[2019-10-13] MEDS ORDERED: magnesium hydroxide 30ml (MOM) UD suspension PO PRN (16:30)
[2019-10-13] MEDS ORDERED: potassium CL 10mEq/100ml bag 100 ML IV PRN ×2 (16:30)
[2019-10-13] MEDS ORDERED: ondansetron/PF 4mg/2ml inj IV PRN (16:30)
[2019-10-13] MEDS ORDERED: magnesium 4gm in 100ml NS 100 ML IV PRN (16:30)
[2019-10-13] MEDS ORDERED: aspirin 325mg tablet PO ONE (16:30)
[2019-10-13] MEDS ORDERED: magnesium 2GM in 50ml NS 50 ML IV PRN (16:30)
[2019-10-13] MEDS ORDERED: acetaminophen 650mg rectal suppository RC PRN (16:30)
[2019-10-13] MEDS ORDERED: mag hydrox/Alum hydrox/simeth 30ml oral suspension PO PRN (16:30)
[2019-10-13] MEDS ORDERED: magnesium Cl slow-release 64mg tablet PO PRN (16:30)
[2019-10-13 16:54] LABS: CHOL/HDL RATIO 2.8 (0.00-4.99); CHOLESTEROL 196 MG/DL (0-200); HDL CHOLESTEROL 69 MG/DL (35-60); HEMOGLOBIN A1C 5.6 % (4.5-6.2); LDL CHOLESTEROL 109 MG/DL (50-100); TRIGLYCERIDES 86 MG/DL (20-135)
--- NOTE | 2019-10-13 17:13 | NUR ---
PT TALKING TO NEUROLOGIST ON FACE TIME.
[2019-10-13] MEDS ORDERED: HYDR-3686 PO (17:20)
[2019-10-13] MEDS ORDERED: CLON0.5T23 PO (17:21)
[2019-10-13] MEDS ORDERED: QUET25TA34 PO (17:21)
[2019-10-13] MEDS ORDERED: iohexol 350MG/ML 100ml bottle IV ONE (17:30)
--- NOTE | 2019-10-13 18:00 | NUR ---
TO CT SCAN
--- NOTE | 2019-10-13 19:13 | NUR ---
CALLED [facility] AND SPOKE TO AUDREY, ROOM 4015 IS BEING CLEANED AT THIS TIME, WILL BE READY IN 15 MINUTES
--- NOTE | 2019-10-13 19:25 | NUR ---
REPORT REC'D FROM ROSSANA HERNANDEZ. IN ED. ROOM IS BEING CLEANED AT THIS TIME. ED NOTIFIED.
[2019-10-13] MEDS: K and/or MAG REPLACEMENT MC SCH (20:00)
[2019-10-13 20:13] LABS: CLARITY,URINE CLEAR (Clear); COLOR,URINE YELLOW (Yellow); GLUCOSE, URINE NEGATIVE (Neg); KETONES,URINE NEGATIVE (Neg); LEUKOCYTE ESTERASE ,URINE SMALL (Neg); NITRITES, URINE NEGATIVE (Neg); OCCULT BLOOD,URINE SMALL (Neg); PROTEIN,URINE NEGATIVE (Neg); UROBILINOGEN,URINE 0.2 E.U/dL (0.2-1.0)
[2019-10-13 20:19] LABS: UA COLLECTION TYPE CLN CATCH MIDSTREAM
[2019-10-13 20:20] LABS: BACTERIA,URINE FEW /HPF (Neg); RBC,URINE 0-2 /HPF (0-2); SQUAMOUS EPITHELIAL CELL,UR FEW /LPF (FEW)
[2019-10-13] MEDS: heparin, porcine 5000 units/ml vial SQ SCH (20:26)
[2019-10-13] MEDS: acetaminophen 325mg tablet PO PRN (20:37)
[2019-10-13] MEDS ORDERED: clonazePAM 0.5mg tablet PO PRN (21:20)
[2019-10-13] MEDS ORDERED: clopidogrel 75mg tablet PO ONE (21:35)
[2019-10-13] MEDS: CefTRIAXone/D5W-Rocephin 1gm 50 ML IV SCH (21:44)
--- NOTE | 2019-10-13 21:48 | NUR ---
DR DAMIAN IN TO SEE PT. CLARIFIED LIPITOR ORDER, NEW ORDER FOR LIPITOR 40MG PO DAILY, PLAVIX 75MG PO DAILY AND ONCE NOW.
[2019-10-13 22:00] VITALS: BP 112/62
[2019-10-14] MEDS: acetaminophen 325mg tablet PO PRN ×2 (02:42→10:02)
--- NOTE | 2019-10-14 06:12 | NUR ---
REPORT GIVEN TO ROSSANA CORONADO.
--- NOTE | 2019-10-14 06:52 | NUR ---
Patient in room [facility] 4015B. I have received report from KIANNA TRACY and had the opportunity to ask questions and assume patient care.
[2019-10-14 07:23] LABS: EOSINOPHILS # (AUTO) 0.2 X10'3 (0-0.9); EOSINOPHILS % (AUTO) 3.5 % (0-6); HEMATOCRIT 41.4 % (35.0-45.0); LYMPHOCYTES # (AUTO) 1.6 X10'3 (1.1-4.8); LYMPHOCYTES % (AUTO) 31.9 % (21-51); MEAN CORPUSCULAR HEMOGLOBIN 29.9 PG (27.0-31.0); MEAN CORPUSCULAR HGB CONC 33.7 g/dL (33.0-36.5); MEAN CORPUSCULAR VOLUME 88.7 FL (78-98); MEAN PLATELET VOLUME 8.4 FL (7.4-10.4); MONOCYTES # (AUTO) 0.4 X10'3 (0-0.9); MONOCYTES % (AUTO) 8.3 % (2-12); NEUTROPHILS # (AUTO) 2.8 X10'3 (1.8-7.7); NEUTROPHILS % (AUTO) 55.3 % (42-75); PLATELET COUNT 213 X10'3 (140-440); RED BLOOD COUNT 4.67 X10'6 (4.20-5.60); WHITE BLOOD COUNT 5.1 X10'3 (4.5-11.0)
[2019-10-14] MEDS: normal saline 1000ml 1,000 ML IV SCH (07:31)
[2019-10-14 07:41] VITALS: BP 129/76
[2019-10-14 07:54] LABS: ALANINE AMINOTRANSFERASE 24 U/L (12-78); ALBUMIN/GLOBULIN RATIO 1.3 (1.1-1.5); ALKALINE PHOSPHATASE 79 IU/L (46-116); ANION GAP 7 (8-16); ASPARTATE AMINO TRANSFERASE 18 U/L (10-37); BILIRUBIN,TOTAL 0.6 MG/DL (0.1-1.0); BLOOD UREA NITROGEN 10 MG/DL (7-18); BUN/CREATININE RATIO 10.8 (6.6-38.0); CALCIUM 8.8 MG/DL (8.5-10.1); CHLORIDE 108 MMOL/L (99-107); CHOL/HDL RATIO 2.8 (0.00-4.99); CHOLESTEROL 187 MG/DL (0-200); CREATININE 0.93 MG/DL (0.40-0.90); GLUCOSE 88 MG/DL (70-104); HDL CHOLESTEROL 66 MG/DL (35-60); LDL CHOLESTEROL 108 MG/DL (50-100); MAGNESIUM 2.2 MG/DL (1.5-2.4); PHOSPHORUS 3.8 MG/DL (2.3-4.5); POTASSIUM 3.9 MMOL/L (3.5-5.1); SODIUM 144 MMOL/L (135-145); TOTAL CARBON DIOXIDE 29.4 MMOL/L (24-32); TOTAL PROTEIN 7.2 G/DL (6.4-8.2); TRIGLYCERIDES 76 MG/DL (20-135); eGFR 61 ML/MIN
[2019-10-14] MEDS ORDERED: busPIRone 5mg tablet PO SCH (08:00)
[2019-10-14] MEDS ORDERED: levoTHYROXINE 75mcg tablet PO SCH (08:00)
[2019-10-14] MEDS: K and/or MAG REPLACEMENT MC SCH (08:00)
[2019-10-14] MEDS ORDERED: aspirin 81mg tablet.DR PO SCH (08:00)
[2019-10-14] MEDS ORDERED: atorvastatin 20mg tablet PO SCH ×3 (08:00)
[2019-10-14] MEDS ORDERED: clopidogrel 75mg tablet PO SCH (08:00)
[2019-10-14] MEDS ORDERED: sertraline 25mg tablet PO SCH (08:00)
[2019-10-14 10:00] VITALS: BP 134/78
[2019-10-14] MEDS: heparin, porcine 5000 units/ml vial SQ SCH (10:03)
[2019-10-14] MEDS: CefTRIAXone/D5W-Rocephin 1gm 50 ML IV SCH (10:10)
[2019-10-14] MEDS ORDERED: LEVO100T9 PO (10:34)
[2019-10-14] MEDS ORDERED: ATOR20TA66 PO (10:34)
[2019-10-14] MEDS ORDERED: ASPI-1071 PO (10:34)
[2019-10-14] MEDS ORDERED: CLOP75TA35 PO (10:34)
[2019-10-14] MEDS ORDERED: SYN0.088T PO (10:34)
[2019-10-14] MEDS ORDERED: CEFD300C3 PO (10:34)
[2019-10-14] MEDS ORDERED: CYCL-1 PO (10:45)
--- NOTE | 2019-10-14 12:16 | NUR ---
PT DC. EDUCATED ON SMOKING CESSATION , STATIN , ANTITHROMBOITIC AND ASA CALLED INTO [facility]. EDUCATION ALSO GIVEN ON PRESCRIBED MEDS, RISK FACTORS, WARNING SIGNS AND SYMPTOMS AND ACTIVATION OF EMS. PT STABLE.
[2019-10-14] MEDS ORDERED: QUEtiapine 25mg tablet PO SCH (21:00)
[2019-10-15] MEDS ORDERED: levoTHYROXINE 100mcg tablet PO SCH (07:00)
[2019-10-15] MEDS ORDERED: levoTHYROXINE 88mcg tablet PO SCH (07:00)
== END 2019-10-14 12:40 | disposition home or self-care (01) | DRG 552 ==
LOC: ER 12:33 → ED HOLD 16:28 → ORTHO 4S 19:39
PROVIDERS: ADMIT Family Medicine; ATTEND Family Medicine
PROC: BW281ZZ Computerized Tomography (CT Scan) of Head using Low Osmolar Contrast (ICD-10-PCS; principal; 2019-10-13)
DX: M47.812 Spondylosis without myelopathy or radiculopathy, cervical region (principal); N39.0 Urinary tract infection, site not specified; F31.81 Bipolar II disorder; R20.0 Anesthesia of skin; E03.9 Hypothyroidism, unspecified; E78.5 Hyperlipidemia, unspecified; F43.10 Post-traumatic stress disorder, unspecified; R53.1 Weakness; Z60.2 Problems related to living alone; J45.909 Unspecified asthma, uncomplicated; Z79.82 Long term (current) use of aspirin; Z88.1 Allergy status to other antibiotic agents; Z88.5 Allergy status to narcotic agent; Z88.2 Allergy status to sulfonamides; Z79.899 Other long term (current) drug therapy; Z80.49 Family history of malignant neoplasm of other genital organs; Z87.891 Personal history of nicotine dependence; Z90.711 Acquired absence of uterus with remaining cervical stump; Z91.19 Patient's noncompliance with other medical treatment and regimen; Z95.0 Presence of cardiac pacemaker
CPT/HCPCS: 36415; 70450; 70496; 70498; 73030; 80053; 80061; 81001; 83036; 83735; 84100; 84443; 85025; 85610; 85651; 85730; 87081; 87088; 92508; 92616; 93005; 93306; 99285; G0378; J0696; J1644; J7030; Q9967

== ENCOUNTER 2020-04-23 06:55 | Day surgery (SDC) | payer MEDICARE, MEDICAID ==
[2020-04-20 08:53] LABS: BASOPHILS % (AUTO) 0.7 % (0-1); EOSINOPHILS # (AUTO) 0.2 X10'3 (0-0.9); EOSINOPHILS % (AUTO) 2.2 % (0-6); HEMATOCRIT 43.6 % (35.0-45.0); HEMOGLOBIN 14.2 g/dl (12.0-16.0); LYMPHOCYTES # (AUTO) 1.5 X10'3 (1.1-4.8); LYMPHOCYTES % (AUTO) 21.4 % (21-51); MEAN CORPUSCULAR HEMOGLOBIN 28.5 PG (27.0-31.0); MEAN CORPUSCULAR HGB CONC 32.6 g/dL (33.0-36.5); MEAN CORPUSCULAR VOLUME 87.3 FL (78-98); MEAN PLATELET VOLUME 8.8 FL (7.4-10.4); MONOCYTES # (AUTO) 0.5 X10'3 (0-0.9); MONOCYTES % (AUTO) 6.9 % (2-12); NEUTROPHILS # (AUTO) 4.7 X10'3 (1.8-7.7); NEUTROPHILS % (AUTO) 68.8 % (42-75); PLATELET COUNT 235 X10'3 (140-440); RED CELL DISTRIBUTION WIDTH 13.7 % (11.5-14.5); WHITE BLOOD COUNT 6.9 X10'3 (4.5-11.0)
[2020-04-20 09:04] LABS: ALBUMIN 3.8 G/DL (3.4-5.0); ANION GAP 10 (8-16); BLOOD UREA NITROGEN 14 MG/DL (7-18); BUN/CREATININE RATIO 14.6 (6.6-38.0); CALCIUM 8.9 MG/DL (8.5-10.1); CHLORIDE 109 MMOL/L (99-107); CREATININE 0.96 MG/DL (0.40-0.90); GLUCOSE 98 MG/DL (70-104); POTASSIUM 4.1 MMOL/L (3.5-5.1); SODIUM 145 MMOL/L (135-145); TOTAL CARBON DIOXIDE 26.5 MMOL/L (24-32); eGFR 59 ML/MIN
[2020-04-20 09:32] LABS: PARTIAL THROMBOPLASTIN TIME 31 SECONDS (22-32)
[~2020-04-23] VITALS: Ht 177.8 cm; Wt 118.7 kg
[2020-04-23] VITALS (9 sets, daily range): BP systolic 106–126; BP diastolic 63–74
[~2020-04-23 06:55] MED LIST changes: +ASPI-1071 PO; -CHOL50004 PO; +CLON0.5T23 PO; +CLOP75TA35 PO; +CYCL-1 PO; -DICY20TA17 PO; +LEVO100T9 PO; -LEVO150T8 PO; +QUET25TA34 PO; +SYN0.088T PO; -TRAZ-251 PO
[2020-04-23] MEDS ORDERED: LORazepam 0.5 MG tablet PO PRN (07:10)
[2020-04-23] MEDS ORDERED: normal saline 1,000 ML IV SCH (07:10)
[2020-04-23] MEDS ORDERED: LIDOcaine/PRILOcaine 5gm cream TP ONE (07:10)
[2020-04-23] MEDS ORDERED: diphenhydrAMINE 25mg capsule PO PRN (07:10)
[2020-04-23] MEDS ORDERED: LIDOcaine 1% (10mg/ml) 2ml vial ONE (07:23)
[2020-04-23] MEDS ORDERED: BUDE10.22 INH (08:22)
[2020-04-23] MEDS ORDERED: ALBU18HF2 INH (08:22)
[2020-04-23] MEDS ORDERED: MONT10TA21 PO (08:22)
[2020-04-23] MEDS ORDERED: LEVO-100 PO (08:22)
[2020-04-23] MEDS ORDERED: ATOR20TA66 PO (08:22)
[2020-04-23] MEDS ORDERED: LEVO88TA PO (08:22)
[2020-04-23] MEDS ORDERED: HYDR10SY15 PO (08:22)
[2020-04-23] MEDS ORDERED: nitroGLYCERIN-Tridil 50MG/D5W 250 ML IV ONE (09:12)
[2020-04-23] MEDS ORDERED: heparin 1,000unit/ml 10ml vial 10 ML ONE (09:13)
[2020-04-23] MEDS ORDERED: LIDOcaine 1% (10mg/ml)w/preservative injection 20ml MDV ONE (09:13)
[2020-04-23] MEDS ORDERED: fentaNYL/PF 50MCG/1 ML 2ML syringe ONE (09:13)
[2020-04-23] MEDS ORDERED: iohexol 350MG/ML 100ml bottle IV ONE (09:13)
[2020-04-23] MEDS ORDERED: verapamil 2.5 mg/ml inj IV ONE (09:13)
[2020-04-23] MEDS ORDERED: midazolam 2 mg/2 ml injection ONE ×2 (09:13→09:37)
[2020-04-23] MEDS ORDERED: proCHLORperazine 10 MG/2 ml inj ONE (09:46)
[2020-04-23] MEDS ORDERED: diphenhydrAMINE 50 mg/ml inj ONE (09:49)
[2020-04-23] MEDS ORDERED: proCHLORperazine 10 MG/2 ml inj IV PRN (10:35)
[2020-04-23] MEDS ORDERED: OXAZEpam 15mg capsule PO PRN (10:35)
[2020-04-23] MEDS ORDERED: HYDROcodone/acetaminophen 10/325mg tab PO PRN (10:35)
[2020-04-23] MEDS ORDERED: HYDROcodone/acetaminophen 5mg/325mg tablet PO PRN (10:35)
[2020-04-23] MEDS ORDERED: ondansetron/PF 4mg/2ml inj IV PRN (10:35)
== END 2020-04-23 12:52 | disposition home or self-care (01) ==
LOC: SSTAY O 06:55
PROVIDERS: ATTEND Internal Medicine Interventional Cardiology
DX: R94.39 Abnormal result of other cardiovascular function study (principal); E03.9 Hypothyroidism, unspecified; F31.9 Bipolar disorder, unspecified; F43.10 Post-traumatic stress disorder, unspecified; E78.5 Hyperlipidemia, unspecified; Z79.899 Other long term (current) drug therapy; Z88.2 Allergy status to sulfonamides; Z88.1 Allergy status to other antibiotic agents; Z88.5 Allergy status to narcotic agent; Z87.891 Personal history of nicotine dependence; Z79.01 Long term (current) use of anticoagulants
CPT/HCPCS: 36415; 80048; 85025; 85610; 85730; 93005; 93458; 99152; C1769; C1894; J0780; J1200; J1644; J2001; J2250; J3010; J7030; Q0163; Q9967; A4620; A5120; J3490

== ENCOUNTER 2021-04-15 10:36 | Emergency (ER) | payer BC, MEDICAID ==
[~2021-04-15] VITALS: Ht 175.3 cm; Wt 109.8 kg
[~2021-04-15 10:36] MED LIST changes: +ALBU18HF2 INH; -ASPI-1071 PO; +BUDE10.22 INH; -CLOP75TA35 PO; -CYCL-1 PO; +HYDR10SY15 PO; +LEVO-100 PO; -LEVO100T9 PO; +LEVO88TA PO; +MONT10TA21 PO; -QUET25TA34 PO; -SYN0.088T PO
[2021-04-15 11:30] LABS: BASOPHILS % (AUTO) 0.8 % (0-1); EOSINOPHILS # (AUTO) 0.1 X10'3 (0-0.9); EOSINOPHILS % (AUTO) 2.1 % (0-6); HEMATOCRIT 44.3 % (35.0-45.0); HEMOGLOBIN 14.4 g/dl (12.0-16.0); LYMPHOCYTES # (AUTO) 1.5 X10'3 (1.1-4.8); LYMPHOCYTES % (AUTO) 26.4 % (21-51); MEAN CORPUSCULAR HEMOGLOBIN 29.4 PG (27.0-31.0); MEAN CORPUSCULAR HGB CONC 32.6 g/dL (33.0-36.5); MEAN CORPUSCULAR VOLUME 90.2 FL (78-98); MEAN PLATELET VOLUME 8.4 FL (7.4-10.4); MONOCYTES # (AUTO) 0.4 X10'3 (0-0.9); NEUTROPHILS # (AUTO) 3.7 X10'3 (1.8-7.7); NEUTROPHILS % (AUTO) 63.7 % (42-75); PLATELET COUNT 248 X10'3 (140-440); RED BLOOD COUNT 4.91 X10'6 (4.20-5.60); RED CELL DISTRIBUTION WIDTH 14.2 % (11.5-14.5); WHITE BLOOD COUNT 5.8 X10'3 (4.5-11.0)
[2021-04-15 11:39] LABS: ALANINE AMINOTRANSFERASE 18 U/L (12-78); ALBUMIN 4.2 G/DL (3.4-5.0); ALBUMIN/GLOBULIN RATIO 1.2 (1.1-1.5); ALKALINE PHOSPHATASE 76 IU/L (46-116); ANION GAP 10 (8-16); ASPARTATE AMINO TRANSFERASE 19 U/L (10-37); BILIRUBIN,TOTAL 0.5 MG/DL (0.1-1.0); BLOOD UREA NITROGEN 11 MG/DL (7-18); BUN/CREATININE RATIO 11.6 (6.6-38.0); CALCIUM 9.3 MG/DL (8.5-10.1); CHLORIDE 109 MMOL/L (99-107); CREATININE 0.95 MG/DL (0.40-0.90); GLUCOSE 94 MG/DL (70-104); POTASSIUM 4.9 MMOL/L (3.5-5.1); SODIUM 147 MMOL/L (135-145); TOTAL CARBON DIOXIDE 28.4 MMOL/L (24-32); TOTAL PROTEIN 7.8 G/DL (6.4-8.2); eGFR 59 ML/MIN
[2021-04-15 12:35] LABS: CLARITY,URINE CLOUDY (Clear); COLOR,URINE YELLOW (Yellow); GLUCOSE, URINE NEGATIVE (Neg); KETONES,URINE NEGATIVE (Neg); LEUKOCYTE ESTERASE ,URINE SMALL (Neg); NITRITES, URINE NEGATIVE (Neg); OCCULT BLOOD,URINE MODERATE (Neg); PROTEIN,URINE NEGATIVE (Neg); UROBILINOGEN,URINE 0.2 E.U/dL (0.2-1.0)
[2021-04-15] MEDS ORDERED: mag hydrox/Alum hydrox/simeth 30ml oral suspension PO ONE (12:35)
[2021-04-15] MEDS ORDERED: LIDOcaine Viscous 15ml cup MM ONE (12:35)
[2021-04-15] MEDS ORDERED: pantoprazole 40mg Tablet.DR PO ONE (12:35)
[2021-04-15] MEDS ORDERED: ondansetron 4 MG/5 ML oral solution 5ml CUP PO ONE (12:35)
[2021-04-15 12:36] LABS: UA COLLECTION TYPE CLN CATCH MIDSTREAM
[2021-04-15] MEDS ORDERED: ondansetron 4mg rapidly disintigrating tab PO ONE (12:40)
[2021-04-15 12:46] LABS: BACTERIA,URINE 2+ /HPF (Neg); SQUAMOUS EPITHELIAL CELL,UR MANY /LPF (FEW)
[2021-04-15 12:50] LABS: WBC,URINE 0-4 /HPF (0-4)
[2021-04-15] MEDS ORDERED: PANT-47 PO (13:12)
[2021-04-15 13:18] VITALS: BP 133/80
== END 2021-04-15 13:25 | disposition home or self-care (01) ==
LOC: ER 10:37
DX: K29.00 Acute gastritis without bleeding (principal); N39.0 Urinary tract infection, site not specified; R10.13 Epigastric pain; J45.909 Unspecified asthma, uncomplicated; F31.9 Bipolar disorder, unspecified; Z98.890 Other specified postprocedural states; Z60.2 Problems related to living alone; Z88.2 Allergy status to sulfonamides; Z88.1 Allergy status to other antibiotic agents; Z88.5 Allergy status to narcotic agent; Z79.899 Other long term (current) drug therapy
CPT/HCPCS: 36415; 71045; 80053; 81001; 82948; 83880; 84484; 85025; 93005; 99285

== ENCOUNTER 2021-12-17 10:12 | Emergency (ER) | payer MEDICARE, MEDICAID ==
[~2021-12-17] VITALS: Ht 175.3 cm; Wt 109.0 kg
[2021-12-17 10:12] VITALS: BP 123/87
[~2021-12-17 10:12] MED LIST changes: +PANT-47 PO
[2021-12-17 10:48] LABS: BASOPHILS % (AUTO) 0.5 % (0-1); EOSINOPHILS # (AUTO) 0.1 X10'3 (0-0.9); EOSINOPHILS % (AUTO) 1.4 % (0-6); HEMATOCRIT 40.4 % (35.0-45.0); HEMOGLOBIN 13.4 g/dl (12.0-16.0); LYMPHOCYTES # (AUTO) 1.1 X10'3 (1.1-4.8); LYMPHOCYTES % (AUTO) 15.9 % (21-51); MEAN CORPUSCULAR HEMOGLOBIN 29.3 PG (27.0-31.0); MEAN CORPUSCULAR HGB CONC 33.1 g/dL (33.0-36.5); MEAN CORPUSCULAR VOLUME 88.6 FL (78-98); MEAN PLATELET VOLUME 8.1 FL (7.4-10.4); MONOCYTES # (AUTO) 0.4 X10'3 (0-0.9); NEUTROPHILS # (AUTO) 5.3 X10'3 (1.8-7.7); NEUTROPHILS % (AUTO) 76.2 % (42-75); PLATELET COUNT 212 X10'3 (140-440); RED BLOOD COUNT 4.56 X10'6 (4.20-5.60); RED CELL DISTRIBUTION WIDTH 13.6 % (11.5-14.5)
[2021-12-17 11:01] LABS: ALANINE AMINOTRANSFERASE 19 U/L (12-78); ALBUMIN 3.9 G/DL (3.4-5.0); ALBUMIN/GLOBULIN RATIO 1.1 (1.1-1.5); ALKALINE PHOSPHATASE 77 IU/L (46-116); ANION GAP 11 (8-16); ASPARTATE AMINO TRANSFERASE 16 U/L (10-37); BILIRUBIN,TOTAL 0.7 MG/DL (0.1-1.0); BLOOD UREA NITROGEN 13 MG/DL (7-18); BUN/CREATININE RATIO 15.5 (6.6-38.0); CALCIUM 8.8 MG/DL (8.5-10.1); CHLORIDE 106 MMOL/L (99-107); CREATININE 0.84 MG/DL (0.40-0.90); GLUCOSE 105 MG/DL (70-104); SODIUM 144 MMOL/L (135-145); TOTAL CARBON DIOXIDE 26.9 MMOL/L (24-32); TOTAL PROTEIN 7.3 G/DL (6.4-8.2); eGFR 68 ML/MIN
[2021-12-17] MEDS ORDERED: METH4TAB81 PO (11:40)
[2021-12-17] MEDS ORDERED: DOXY-1 PO (11:40)
--- NOTE | 2021-12-17 12:01 | NUR ---
Pt given and understands d/c instructions. IV d/c catheter was intact. Ambulatory with a steady gait.
== END 2021-12-17 12:01 | disposition home or self-care (01) ==
LOC: ER 10:13
DX: U07.1 COVID-19 (principal); J44.1 Chronic obstructive pulmonary disease with (acute) exacerbation; R06.02 Shortness of breath; R05.9 Cough, unspecified; F31.9 Bipolar disorder, unspecified; F17.200 Nicotine dependence, unspecified, uncomplicated; Z98.890 Other specified postprocedural states; Z60.2 Problems related to living alone; Z88.2 Allergy status to sulfonamides; Z88.1 Allergy status to other antibiotic agents; Z88.5 Allergy status to narcotic agent; Z79.2 Long term (current) use of antibiotics; Z79.899 Other long term (current) drug therapy
CPT/HCPCS: 36415; 71045; 80053; 83880; 84484; 85025; 93005; 99285

== ENCOUNTER 2025-01-03 09:06 | Inpatient (IN) | payer MEDICARE, MEDICAID ==
[~2025-01-03] VITALS: Ht 175.3 cm; Wt 115.0 kg
[~2025-01-03 09:06] MED LIST changes: +METH4TAB81 PO; +MONT-47 PO; -MONT10TA21 PO
[2025-01-03 09:44] LABS: BASOPHILS % (AUTO) 0.7 % (0-1); EOSINOPHILS # (AUTO) 0.1 X10'3 (0-0.9); EOSINOPHILS % (AUTO) 1.6 % (0-6); HEMATOCRIT 43.2 % (35.0-45.0); HEMOGLOBIN 14.4 g/dl (12.0-16.0); LYMPHOCYTES # (AUTO) 1.4 X10'3 (1.1-4.8); MEAN CORPUSCULAR HEMOGLOBIN 29.4 PG (27.0-31.0); MEAN CORPUSCULAR HGB CONC 33.3 g/dL (33.0-36.5); MEAN CORPUSCULAR VOLUME 88.3 FL (78-98); MEAN PLATELET VOLUME 8.2 FL (7.4-10.4); MONOCYTES # (AUTO) 0.4 X10'3 (0-0.9); MONOCYTES % (AUTO) 5.9 % (2-12); NEUTROPHILS # (AUTO) 4.3 X10'3 (1.8-7.7); NEUTROPHILS % (AUTO) 69.8 % (42-75); PLATELET COUNT 228 X10'3 (140-440); RED BLOOD COUNT 4.89 X10'6 (4.20-5.60); RED CELL DISTRIBUTION WIDTH 13.6 % (11.5-14.5); WHITE BLOOD COUNT 6.2 X10'3 (4.5-11.0)
[2025-01-03 09:57] LABS: APTT 30 SECONDS (22-32)
[2025-01-03 09:58] LABS: PROTHROMBIN TIME 10.8 SECONDS (9.0-12.0)
[2025-01-03 10:01] LABS: ALANINE AMINOTRANSFERASE 22 U/L (12-78); ALBUMIN 3.9 G/DL (3.4-5.0); ALBUMIN/GLOBULIN RATIO 1.2 (1.1-1.5); ALKALINE PHOSPHATASE 70 IU/L (46-116); ANION GAP 9 (8-16); ASPARTATE AMINO TRANSFERASE 15 U/L (10-37); BILIRUBIN,TOTAL 0.7 MG/DL (0.1-1.0); BLOOD UREA NITROGEN 11 MG/DL (7-18); BUN/CREATININE RATIO 13.3 (10.0-20.0); CALCIUM 8.9 MG/DL (8.5-10.1); CHLORIDE 106 MMOL/L (99-107); CREATININE 0.83 MG/DL (0.40-0.90); GLUCOSE 105 MG/DL (70-104); POTASSIUM 3.8 MMOL/L (3.5-5.1); SODIUM 141 MMOL/L (135-145); TOTAL CARBON DIOXIDE 26.4 MMOL/L (24-32); TOTAL PROTEIN 7.1 G/DL (6.4-8.2); eCRCL 69 ML/MIN; eGFR 69 ML/MIN
[2025-01-03 10:12] LABS: BILIRUBIN,DIRECT 0.2 MG/DL (0-0.3); PRO BRAIN NATRIURETIC PEPTIDE 60 PG/ML (0-125)
[2025-01-03] MEDS ORDERED: ESCI-8 PO (14:37)
[2025-01-03] MEDS ORDERED: APIX5TAB3 (14:37)
[2025-01-03] MEDS ORDERED: ESCI5TAB17 PO (14:37)
[2025-01-03] MEDS ORDERED: LEVO112T5 (14:37)
[2025-01-03] MEDS ORDERED: magnesium hydroxide 30ml (MOM) UD suspension PO PRN (15:20)
[2025-01-03] MEDS ORDERED: ondansetron/PF 4mg/2ml inj IV PRN (15:20)
[2025-01-03] MEDS ORDERED: magnesium sulf-water 2g/50mL 50 ML IV PRN (15:20)
[2025-01-03] MEDS ORDERED: mag hydrox/Alum hydrox/simeth 30ml oral suspension PO PRN (15:20)
[2025-01-03] MEDS ORDERED: potassium Cl 40MEQ/1/2NS 520ml 520 ML IV PRN (15:20)
[2025-01-03] MEDS ORDERED: magnesium sulf-water 4G/100mL 100 ML IV PRN (15:20)
[2025-01-03] MEDS ORDERED: nitroGLYCERIN 0.4mg SUBLingual tab SL PRN ×2 (15:20→15:30)
[2025-01-03] MEDS ORDERED: potassium Cl 20 mEq SR tablet PO PRN ×2 (15:20)
[2025-01-03] MEDS ORDERED: acetaminophen 325mg tablet PO PRN (15:20)
[2025-01-03] MEDS ORDERED: magnesium Cl slow-release 64mg tablet PO PRN (15:20)
[2025-01-03] MEDS ORDERED: morphine 2 MG/ML inj. syringe IV PRN ×2 (15:20)
[2025-01-03] MEDS ORDERED: aminophylline 250mg/10ml inj. IV PRN (15:30)
[2025-01-03] MEDS ORDERED: metoprolol tartrate 1mg/ml inj IV PRN (15:30)
[2025-01-03] MEDS ORDERED: albuterol 2.5 MG/3 ML nebule NEB PRN (15:35)
[2025-01-03 15:58] LABS: PHOSPHORUS 3.2 MG/DL (2.3-4.5)
[2025-01-03 16:07] LABS: BILIRUBIN,URINE NEGATIVE (Neg); CLARITY,URINE CLEAR (Clear); COLOR,URINE YELLOW (Yellow); GLUCOSE, URINE NEGATIVE (Neg); KETONES,URINE TRACE mg/dl (Neg); LEUKOCYTE ESTERASE ,URINE NEGATIVE (Neg); NITRITES, URINE NEGATIVE (Neg); OCCULT BLOOD,URINE TRACE-INTACT (Neg); PH,URINE 7.5 (4.8-8.0); PROTEIN,URINE NEGATIVE (Neg); UROBILINOGEN,URINE 0.2 E.U/dL (0.2-1.0)
[2025-01-03 16:10] LABS: UA COLLECTION TYPE NON-SPECIFIED
[2025-01-03 16:11] LABS: BACTERIA,URINE FEW /HPF (Neg); MUCUS STRANDS NONE SEEN /LPF (Neg); RBC,URINE 0-2 /HPF (0-2); SQUAMOUS EPITHELIAL CELL,UR MODERATE /LPF (FEW); WBC,URINE 0-4 /HPF (0-4)
[2025-01-03 16:13] LABS: HEMOGLOBIN A1C 5.5 % (4.5-6.2)
[2025-01-03 16:33] LABS: THYROID STIMULATING HORMONE 3.97 ulU/ml (0.34-4.50)
[2025-01-03 20:00] VITALS: RESP 16; O2SAT 97
[2025-01-03] MEDS: Budesonide/Formoterol Fumarate (Symbicort 80-4.5 Mcg Inhaler) IH SCH (20:00)
[2025-01-03] MEDS: K and/or MAG REPLACEMENT MC SCH (20:00)
[2025-01-03] MEDS ORDERED: HYDROXYZINE HCL 10 MG/5 ML PO SCH (20:00)
[2025-01-03 22:00] VITALS: BP 119/68; PULSE 68; RESP 16; TEMP 97; O2SAT 98
[2025-01-03] MEDS ORDERED: hydrOXYzine 25 MG tablet PO SCH (22:14)
[2025-01-03] MEDS: atorvastatin 20mg tablet PO SCH (22:28)
[2025-01-03] MEDS: hydrOXYzine 25 MG tablet PO SCH (22:29)
[2025-01-03 23:10] VITALS: PULSE 60; RESP 16; O2SAT 98
[2025-01-04] VITALS (19 sets, daily range): BP systolic 114–159; BP diastolic 64–131; PULSE 68–100; RESP 11–19; TEMP 97.2–98.7; O2SAT 74–100
[2025-01-04 06:34] LABS: BASOPHILS # (AUTO) 0.1 X10'3 (0-0.2); BASOPHILS % (AUTO) 1.1 % (0-1); EOSINOPHILS # (AUTO) 0.2 X10'3 (0-0.9); HEMATOCRIT 44.2 % (35.0-45.0); HEMOGLOBIN 14.7 g/dl (12.0-16.0); LYMPHOCYTES # (AUTO) 1.7 X10'3 (1.1-4.8); LYMPHOCYTES % (AUTO) 27.5 % (21-51); MEAN CORPUSCULAR HEMOGLOBIN 29.6 PG (27.0-31.0); MEAN CORPUSCULAR HGB CONC 33.1 g/dL (33.0-36.5); MEAN CORPUSCULAR VOLUME 89.2 FL (78-98); MEAN PLATELET VOLUME 8.4 FL (7.4-10.4); MONOCYTES # (AUTO) 0.5 X10'3 (0-0.9); MONOCYTES % (AUTO) 7.8 % (2-12); NEUTROPHILS # (AUTO) 3.7 X10'3 (1.8-7.7); NEUTROPHILS % (AUTO) 60.6 % (42-75); PLATELET COUNT 230 X10'3 (140-440); RED BLOOD COUNT 4.95 X10'6 (4.20-5.60); RED CELL DISTRIBUTION WIDTH 13.5 % (11.5-14.5)
[2025-01-04 06:58] LABS: ALBUMIN 3.8 G/DL (3.4-5.0); ANION GAP 9 (8-16); BLOOD UREA NITROGEN 15 MG/DL (7-18); BUN/CREATININE RATIO 15.2 (10.0-20.0); CALCIUM 8.8 MG/DL (8.5-10.1); CHLORIDE 106 MMOL/L (99-107); CHOL/HDL RATIO 3.4 (0.00-4.99); CHOLESTEROL 202 MG/DL (0-200); CREATININE 0.99 MG/DL (0.40-0.90); GLUCOSE 100 MG/DL (70-104); HDL CHOLESTEROL 59 MG/DL (35-60); LDL CHOLESTEROL 129 MG/DL (50-100); POTASSIUM 4.1 MMOL/L (3.5-5.1); SODIUM 143 MMOL/L (135-145); TOTAL CARBON DIOXIDE 27.9 MMOL/L (24-32); TRIGLYCERIDES 82 MG/DL (20-135); eCRCL 58 ML/MIN; eGFR 56 ML/MIN
[2025-01-04] MEDS: aspirin 81mg tab.chew PO SCH (07:46)
[2025-01-04] MEDS: ESCITALOPRAM 10 mg tablet 10 MG TABLET PO SCH ×2 (07:47)
[2025-01-04] MEDS: levoTHYROXINE 112mcg tablet PO SCH (07:49)
[2025-01-04] MEDS: enoxaparin 40mg/0.4ml syringe SUBCUT SCH (07:50)
[2025-01-04] MEDS: regadenoson 0.4mg/5ml syringe IV PRN (09:55)
[2025-01-04] MEDS: aminophylline 500mg/20ml vial IV PRN (10:22)
[2025-01-05 03:00] VITALS: BP 156/88; PULSE 81; RESP 15; TEMP 98.1; O2SAT 98
[2025-01-05 06:53] LABS: BASOPHILS % (AUTO) 0.7 % (0-1); EOSINOPHILS # (AUTO) 0.2 X10'3 (0-0.9); EOSINOPHILS % (AUTO) 2.7 % (0-6); HEMATOCRIT 44.9 % (35.0-45.0); HEMOGLOBIN 15.1 g/dl (12.0-16.0); LYMPHOCYTES # (AUTO) 1.7 X10'3 (1.1-4.8); LYMPHOCYTES % (AUTO) 27.3 % (21-51); MEAN CORPUSCULAR HEMOGLOBIN 29.9 PG (27.0-31.0); MEAN CORPUSCULAR HGB CONC 33.7 g/dL (33.0-36.5); MEAN CORPUSCULAR VOLUME 88.7 FL (78-98); MEAN PLATELET VOLUME 8.1 FL (7.4-10.4); MONOCYTES # (AUTO) 0.5 X10'3 (0-0.9); MONOCYTES % (AUTO) 7.9 % (2-12); NEUTROPHILS # (AUTO) 3.8 X10'3 (1.8-7.7); NEUTROPHILS % (AUTO) 61.4 % (42-75); PLATELET COUNT 226 X10'3 (140-440); RED BLOOD COUNT 5.07 X10'6 (4.20-5.60); RED CELL DISTRIBUTION WIDTH 13.7 % (11.5-14.5); WHITE BLOOD COUNT 6.2 X10'3 (4.5-11.0)
[2025-01-05 07:21] LABS: ALBUMIN 3.8 G/DL (3.4-5.0); ANION GAP 11 (8-16); BLOOD UREA NITROGEN 15 MG/DL (7-18); BUN/CREATININE RATIO 18.3 (10.0-20.0); CALCIUM 8.9 MG/DL (8.5-10.1); CHLORIDE 107 MMOL/L (99-107); CREATININE 0.82 MG/DL (0.40-0.90); GLUCOSE 106 MG/DL (70-104); POTASSIUM 3.9 MMOL/L (3.5-5.1); SODIUM 142 MMOL/L (135-145); TOTAL CARBON DIOXIDE 24.3 MMOL/L (24-32); eCRCL 70 ML/MIN; eGFR 70 ML/MIN
[2025-01-05] MEDS ORDERED: iohexol 350MG/ML 100ml bottle IV ONE (08:14)
[2025-01-05] MEDS ORDERED: LIDOcaine 1% (10mg/ml) 2ml vial ONE (08:14)
[2025-01-05] MEDS ORDERED: fentaNYL/PF 50MCG/1 ML 2ML syringe ONE (08:14)
[2025-01-05] MEDS ORDERED: heparin 1,000unit/ml 10ml vial 10 ML ONE (08:14)
[2025-01-05] MEDS ORDERED: verapamil 2.5 mg/ml inj IV ONE (08:14)
[2025-01-05] MEDS ORDERED: midazolam 1 mg/ML 2ml injection ONE (08:14)
[2025-01-05] MEDS ORDERED: nitroGLYCERIN 500mcg/5mL D5W 5 ML IV ONE (08:17)
[2025-01-05 08:30] VITALS: RESP 16; O2SAT 96
[2025-01-05 11:00] VITALS: BP 145/94; PULSE 85; RESP 15; TEMP 97; O2SAT 97
[2025-01-05] MEDS ORDERED: ATOR20TA66 PO (12:22)
[2025-01-05 14:00] LABS: CHOL/HDL RATIO 3.5 (0.00-4.99); CHOLESTEROL 191 MG/DL (0-200); CREATININE 0.93 MG/DL (0.40-0.90); HDL CHOLESTEROL 54 MG/DL (35-60); LDL CHOLESTEROL 111 MG/DL (50-100); TRIGLYCERIDES 185 MG/DL (20-135); eCRCL 61 ML/MIN; eGFR 60 ML/MIN
== END 2025-01-05 13:40 | disposition home or self-care (01) | DRG 287 ==
LOC: ER 09:07 → UNDOADMIN 15:18 → ED HOLD 15:18 → PCU 3S 18:01 → ED HOLD 18:01
PROVIDERS: ADMIT Internal Medicine; ATTEND Internal Medicine
PROC: 4A12XM4 Monitoring of Cardiac Stress, External Approach (ICD-10-PCS; 2025-01-04)
PROC: B2111ZZ Fluoroscopy of Multiple Coronary Arteries using Low Osmolar Contrast (ICD-10-PCS; principal; 2025-01-05)
PROC: 4A023N7 Measurement of Cardiac Sampling and Pressure, Left Heart, Percutaneous Approach (ICD-10-PCS; 2025-01-05)
PROC: B2151ZZ Fluoroscopy of Left Heart using Low Osmolar Contrast (ICD-10-PCS; 2025-01-05)
DX: I20.89 Other forms of angina pectoris (principal); I48.91 Unspecified atrial fibrillation; E03.9 Hypothyroidism, unspecified; E78.5 Hyperlipidemia, unspecified; J44.9 Chronic obstructive pulmonary disease, unspecified; Z88.1 Allergy status to other antibiotic agents; Z88.2 Allergy status to sulfonamides; Z88.6 Allergy status to analgesic agent; Z95.0 Presence of cardiac pacemaker
CPT/HCPCS: 36415; 71045; 78452; 80048; 80061; 80076; 81001; 82565; 83036; 83735; 83880; 84100; 84443; 84484; 85025; 85610; 85730; 87081; 93005; 93017; 93306; 93458; 94760; 99152; 99285; A6258; A9500; C1894; G0378; J0280; J1644; J1650; J2003; J2250; J2785; J3010; J3490; J7030; Q0177; Q9967